=== PATIENT | male | born 1995 | race Caucasian/White ===

== ENCOUNTER 2019-08-16 17:15 | Emergency (ER) | payer SELFPAY ==
[2019-08-16 17:45] VITALS: BP 146/88; PULSE 108; TEMP 99.3; BMI 29.0
[2019-08-16] MEDS ORDERED: ONDANSETRON *ODT* 4 MG TABLET SL ONE (18:15)
[2019-08-16] MEDS ORDERED: ACETAMINOPHEN 325 MG TABLET (FP) PO ONE (18:15)
[2019-08-16] MEDS ORDERED: FAMOTIDINE 20 MG TABLET PO ONE (18:15)
[2019-08-16] MEDS ORDERED: ALBUTEROL SO4 2.5/IPRATROPIUM 0.5 INH SOL 3 ML VIAL.NEB. NEB ONE ×4 (18:15→19:18)
--- NOTE | 2019-08-16 18:31 | PDOC ---
History of Present Illness - General Chief Complaint: Cold Symptoms Stated Complaint: FLU LIKE SYMPTOMS Time Seen by Provider: 08/16/19 17:56 History Source: Patient Exam Limitations: No Limitations Past History - Travel Traveled outside of the country in the last 30 days: No Close contact w/someone who was outside of country & ill: No - Past Medical History Allergies/Adverse Reactions: Allergies Allergy/AdvReac Type Severity Reaction Status Date / Time No Known Allergies Allergy Verified 08/16/19 17:42 Home Medications: Ambulatory Orders Albuterol Sulfate Inhaler - [Ventolin HFA Inhaler -] 1 - 2 inh PO Q4H #1 inhaler 08/16/19 Famotidine [Pepcid -] 20 mg PO BID #14 tablet 08/16/19 Ibuprofen 600 mg PO Q6H #30 tablet 08/16/19 Ondansetron [Zofran Odt -] 4 mg SL TID #10 od.tablet 08/16/19 CVA: No COPD: No CHF: No DVT: No - Immunization History Immunization Up to Date: Yes - Psycho Social/Smoking Cessation Hx Smoking History: Current every day smoker Information on smoking cessation initiated: No Hx Alcohol Use: No Drug/Substance Use Hx: No Review of Systems - Review of Systems Able to Perform ROS?: Yes Comments:: 08/16/19 19:23 CONSTITUTIONAL: Present: Fever, chills, body aches Absent: diaphoresis, generalized weakness, malaise, loss of appetite HEENT: Present: rhinorrhea, nasal congestion, throat pain. Absent: difficulty swallowing, mouth swelling, ear pain, eye pain, visual Changes CARDIOVASCULAR: Present: chest pain Absent: chest pain, loss of consciousness, palpitations, irregular heart rate, peripheral edema RESPIRATORY: Present: Cough Absent: shortness of breath, dyspnea with exertion, orthopnea, wheezing, stridor, hemoptysis GASTROINTESTINAL: Absent: abdominal pain, abdominal distension, nausea, vomiting, diarrhea, constipation, melena, hematochezia SKIN: Absent: rash, itching, pallor NEUROLOGIC: Present: headache Absent: focal weakness or paresthesias, dizziness, unsteady gait, seizure, mental status changes, bladder or bowel incontinence Is the patient limited Estonian proficient: No *Physical Exam - Vital Signs Last Vital Signs Temp Pulse Resp BP Pulse Ox 99.3 F 108 H 17 146/88 99 08/16/19 17:42 08/16/19 17:42 08/16/19 17:42 08/16/19 17:42 08/16/19 17:42 - Physical Exam 08/16/19 19:25 GENERAL: Well developed, well nourished. Awake and alert. No acute distress. HEENT: Normocephalic, atraumatic. PERRLA, EOMI. No conjunctival pallor. Sclera are non- icteric. Moist mucous membranes. Oropharynx is clear. NECK: Supple. Full ROM. No JVD. Carotid pulses 2+ and symmetric, without bruits. No thyromegaly. No lymphadenopathy. CARDIOVASCULAR: Regular rate and rhythm. No murmurs, rubs, or gallops. Distal pulses are 2+ and symmetric. PULMONARY: No evidence of respiratory distress. Lungs clear to auscultation bilaterally. No wheezing, rales or rhonchi. ABDOMINAL: Soft. Non-tender. Non-distended. No rebound or guarding. No organomegaly. Normoactive bowel sounds. MUSCULOSKELETAL Normal range of motion at all joints. No bony deformities or tenderness. No CVA tenderness. EXTREMITIES: No cyanosis. No clubbing. No edema. No calf tenderness. SKIN: Warm and dry. Normal capillary refill. No rashes. No jaundice. NEUROLOGICAL: Alert, awake, appropriate. Cranial nerves 2-12 intact. No deficits to light touch and temperature in face, upper extremities and lower extremities. No motor deficits in the in face, upper extremities and lower extremities. Normoreflexic in the upper and lower extremities. Normal speech. Toes are down- going bilaterally. Gait is normal without ataxia. PSYCHIATRIC: Cooperative. Good eye contact. Appropriate mood and affect. Medical Decision Making - Medical Decision Making 08/16/19 19:25 The patient is a 24-year-old male no past medical history presents the ER with 4 days of flulike symptoms. He admits to headache, chest tightness, cough, nausea and vomiting. He has not taken any medication for his symptoms. He did not get a flu vaccine this year. A/P: Flulike illness Exam is overall benign, patient did vomit once in exam room. Zofran, DuoNeb, ibuprofen, Pepcid given in the ER with relief of symptoms. EKG shows a rate of 70 bpm, normal sinus rhythm. Normal intervals and axis. No acute ST-T wave changes Likely patient has flu however he is outside treatment window. Discharge home with symptomatic relief I discussed the physical exam findings, ancillary test results and final diagnoses with the patient. I answered all of the patient's questions. The patient was satisfied with the care received and felt comfortable with the discharge plan and treatment plan. The Patient agrees to follow up with the primary care physician/specialist within 24-72 hours. Return precautions were given. Discharge - Discharge Information Problems reviewed: Yes Clinical Impression/Diagnosis: Flu-like symptoms Condition: Stable Disposition: HOME - Admission No - Follow up/Referral Referrals: Jesus Strange MD [Staff Physician] - - Patient Discharge Instructions Patient Printed Discharge Instructions: DI for Influenza -- Adult Additional Instructions: You have the flu. This is a virus that will get better on its own in approximately 7-10 days. You will most likely have a fever for 7-10 days because of the flu. This is to be expected. Drink plenty of fluids to prevent dehydration and get plenty of rest. Warm tea and cough drops may help your symptoms as well. You were outside the window for treatment with tamiflu. Take Motrin as directed for pain and fever. Take all other medications as prescribed. Follow up with your primary care doctor this week Return to the ED for difficulty breathing, shortness of breath, weakness, or if you have any other changes in your symptoms. - Post Discharge Activity Work/Back to School Note: Back to Work
[2019-08-16] MEDS ORDERED: FAMOTIDINE 20 MG TABLET ONE (18:34)
[2019-08-16] MEDS ORDERED: ACETAMINOPHEN 325 MG TABLET (FP) ONE (18:34)
[2019-08-16] MEDS ORDERED: ONDANSETRON *ODT* 4 MG TABLET ONE (18:35)
--- NOTE | 2019-08-18 11:52 | EKG ---
Test Reason : Blood Pressure : / mmHG Vent. Rate : 088 BPM Atrial Rate : 088 BPM P-R Int : 128 ms QRS Dur : 084 ms QT Int : 350 ms P-R-T Axes : 063 105 036 degrees QTc Int : 423 ms POOR DATA QUALITY, INTERPRETATION MAY BE ADVERSELY AFFECTED NORMAL SINUS RHYTHM RIGHTWARD AXIS BORDERLINE ECG NO PREVIOUS ECGS AVAILABLE Confirmed by STEPHANI VALLEJO MD ([id number]) on 08/18/2019 11:51:29 AM Referred By: Confirmed By:STEPHANI VALLEJO MD
== END 2019-08-16 19:36 | disposition home or self-care (01) ==
LOC: JERFT 17:15
PROC: 3E0F7GC Introduction of Other Therapeutic Substance into Respiratory Tract, Via Natural or Artificial Opening (ICD-10-PCS; principal; 2019-08-16)
DX: J11.1 Influenza due to unidentified influenza virus with other respiratory manifestations (principal); F17.210 Nicotine dependence, cigarettes, uncomplicated
CPT/HCPCS: 93005; 93010; 99281-25; Q0162